=== PATIENT | male | born 1950 | race Caucasian/White ===

== ENCOUNTER 2018-11-18 13:53 | Emergency (ER) | payer OTHER ==
[~2018-11-18] VITALS: Ht 177.8 cm; Wt 97.5 kg
[2018-11-18] MEDS ORDERED: NORCO 5-325 TA1 EACH PO (15:52)
[2018-11-18] MEDS ORDERED: IBUPROFEN 600600 M1 PO (15:52)
[2018-11-18] MEDS ORDERED: KEFLEX500 M1 PO (15:52)
[2018-11-18 16:14] VITALS: BP 144/73
== END 2018-11-18 16:14 | disposition home or self-care (01) ==
LOC: M.ERS 13:53
DX: S62.521B Displaced fracture of distal phalanx of right thumb, initial encounter for open fracture (principal); S61.011A Laceration without foreign body of right thumb without damage to nail, initial encounter; W22.8XXA Striking against or struck by other objects, initial encounter; Y93.89 Activity, other specified; Y92.89 Other specified places as the place of occurrence of the external cause; Y99.8 Other external cause status